=== PATIENT | male | born 1945 | race Caucasian/White ===

== ENCOUNTER 2017-11-01 09:24 | Outpatient (CLI) | payer OTHER ==
[~2017-11-01 09:24] MED LIST: AMOX1TAB5 PO; CIPRO500 MG PO; COREG CR20 MG; DIOVAN160 M1; LANOXIN EL0.05 MG/ML; PYRIDIUM200 MG PO; TRAMADOL HCL-AP1 TAB PO; XARELTO20 MG
== END 2017-11-01 17:00 | disposition home or self-care (01) ==
LOC: TOM 09:24
DX: R97.20 Elevated prostate specific antigen [PSA] (principal); R31.0 Gross hematuria; N28.1 Cyst of kidney, acquired
CPT/HCPCS: 74178; Q9965

== ENCOUNTER 2017-11-05 07:55 | Outpatient (CLI) | payer OTHER | END 2017-11-05 07:57 | disposition home or self-care (01) | LOC: SONOGRAMA 07:55 → MAMO-SONO 08:15 | DX: N31.0 Uninhibited neuropathic bladder, not elsewhere classified (principal) ==

== ENCOUNTER 2017-12-20 12:18 | Outpatient (CLI) | payer OTHER | END 2017-12-20 12:31 | disposition home or self-care (01) | LOC: LAB 12:18 | DX: R97.21 Rising PSA following treatment for malignant neoplasm of prostate (principal) ==

== ENCOUNTER 2018-10-18 08:05 | Outpatient (CLI) | payer OTHER | END 2018-10-18 08:06 | disposition home or self-care (01) | LOC: SONOGRAMA 08:05 | DX: R10.9 Unspecified abdominal pain (principal) ==

== ENCOUNTER 2022-03-15 11:23 | Emergency (ER) | payer OTHER ==
[~2022-03-15] VITALS: Ht 180.3 cm; Wt 111.1 kg
[2022-03-15] MEDS ORDERED: SYNTHROID50 MCG (11:30)
[2022-03-15] MEDS ORDERED: TOPROL XL100 M1 (11:30)
[2022-03-15] MEDS ORDERED: NIFEDIPINE20 MG (11:30)
[2022-03-15] MEDS ORDERED: ALLER-TEC10 MG PO (12:21)
[2022-03-15] MEDS ORDERED: DEXAMETHASONE4 MG PO (12:21)
== END 2022-03-15 13:34 | disposition home or self-care (01) ==
LOC: ER 11:23
DX: T78.40XA Allergy, unspecified, initial encounter (principal)

== ENCOUNTER 2023-02-26 13:45 | Outpatient (CLI) | payer OTHER ==
[~2023-02-26 13:45] MED LIST changes: +ALLER-TEC10 MG PO; +DEXAMETHASONE4 MG PO; +NIFEDIPINE20 MG; +SYNTHROID50 MCG; +TOPROL XL100 M1
== END 2023-02-26 13:50 | disposition home or self-care (01) ==
LOC: RAD 13:45
PROVIDERS: ATTEND Urology
DX: M25.551 Pain in right hip (principal)

== ENCOUNTER 2023-02-26 14:50 | Outpatient (CLI) | payer OTHER | END 2023-02-26 15:01 | disposition home or self-care (01) | LOC: LAB 14:50 | PROVIDERS: ATTEND Urology | DX: N30.00 Acute cystitis without hematuria (principal) ==